=== PATIENT | male | born 1975 | race American Indian/Alaskan Native ===

== ENCOUNTER 2021-02-17 07:34 | Inpatient (IN) | payer OTHER ==
[~2021-02-17] VITALS: Ht 185.4 cm; Wt 65.3 kg
== END 2021-02-19 15:07 | disposition left against medical advice (07) | DRG 395 ==
LOC: ER 07:34 → SEC-K 18:13 → SURH 02-18 15:35
PROVIDERS: ADMIT Surgery; ATTEND Surgery
PROC: BW2110Z Computerized Tomography (CT Scan) of Abdomen and Pelvis using Low Osmolar Contrast, Unenhanced and Enhanced (ICD-10-PCS; principal; 2021-02-17)
PROC: BW30Y0Z Magnetic Resonance Imaging (MRI) of Abdomen using Other Contrast, Unenhanced and Enhanced (ICD-10-PCS; 2021-02-18)
PROC: BW3GY0Z Magnetic Resonance Imaging (MRI) of Pelvic Region using Other Contrast, Unenhanced and Enhanced (ICD-10-PCS; 2021-02-18)
DX: K35.80 Unspecified acute appendicitis (principal); Z53.29 Procedure and treatment not carried out because of patient's decision for other reasons; Z20.822 Contact with and (suspected) exposure to COVID-19
CPT/HCPCS: 72198; 74185